=== PATIENT | female | born 1985 | race African-American/Black ===

== ENCOUNTER 2017-05-11 01:55 | Inpatient (IN) | payer BC ==
[~2017-05-11] VITALS: Ht 147.3 cm; Wt 101.3 kg
[2017-05-11] VITALS (8 sets, daily range): BP systolic 97–157; BP diastolic 67–98
[2017-05-11] MEDS ORDERED: PANTOPRAZOLE 40 MG 10ML VIAL IV STA (02:30)
[2017-05-11] MEDS ORDERED: PROMETHAZINE 12.5MG/ NACL 0.9% 12.5 MG/50 ML BAG IV ONE (02:30)
[2017-05-11] MEDS ORDERED: SODIUM CHLORIDE 0.9% 1000ML 1,000 ML IV STA (02:30)
[2017-05-11] MEDS ORDERED: MORPHINE SULFATE 2 MG/ML SYR IV STA ×2 (02:30→02:49)
[2017-05-11 02:38] LABS: BASOPHILS % 0.1 % (0.0-1.0); HEMOGLOBIN 14.2 g/dL (12.0-16.0); LYMPHOCYTES # (AUTO) 0.8 (1.0-3.2); LYMPHOCYTES % 5.5 % (18.0-39.1); MEAN CORPUSCULAR HEMOGLOBIN 27.5 pg (28-32); MEAN CORPUSCULAR HGB CONC 33.8 g/dL (31-35); MEAN CORPUSCULAR VOLUME 81.4 fL (81-99); MONOCYTES # (AUTO) 0.5 (0.2-0.8); MONOCYTES % 3.3 % (4.4-11.3); NEUTROPHILS # (AUTO) 13.7 (2.1-6.9); NEUTROPHILS % 90.8 % (38.7-80.0); PLATELET COUNT 252 x10e3/uL (140-360); RED BLOOD COUNT 5.16 x10e6/uL (3.6-5.1); RED CELL DISTRIBUTION WIDTH 14.1 % (11.7-14.4)
[2017-05-11 02:40] LABS: BILIRUBIN,URINE NEGATIVE (NEGATIVE); KETONES,URINE 2+ (NEGATIVE); LEUKOCYTE ESTERASE ,URINE TRACE (NEGATIVE); NITRITE,URINE NEGATIVE (NEGATIVE); URINE UROBILINOGEN 0.2 mg/dL (0.2 - 1)
[2017-05-11 02:43] LABS: CLARITY,URINE CLEAR (CLEAR); COLOR,URINE YELLOW (YELLOW); INR 1.1; PARTIAL THROMBOPLASTIN TIME 26.3 seconds (23.8-35.5); PROTEIN,URINE DIPSTICK 2+ (NEGATIVE); PROTHROMBIN TIME 13.4 seconds (11.9-14.5)
[2017-05-11 02:50] LABS: AMYLASE 85 U/L (25-125); CREATINE KINASE 126 IU/L (29-168); LIPASE 18 U/L (8-78)
[2017-05-11 02:54] LABS: ALANINE AMINOTRANSFERASE 17 IU/L (0-55); ALBUMIN 3.8 g/dL (3.5-5.0); ALBUMIN/GLOBULIN RATIO 0.9 (0.8-2.0); ALKALINE PHOSPHATASE 71 IU/L (40-150); ANION GAP 17.2 mmol/L (8-16); BACTERIA,URINE FEW /HPF; BLOOD UREA NITROGEN 7 mg/dL (7-26); BUN/CREATININE RATIO 9 (6-25); CALCIUM 9.5 mg/dL (8.4-10.2); CARBON DIOXIDE 21 mmol/L (22-29); CHLORIDE 105 mmol/L (98-107); CREATININE, SERUM 0.76 mg/dL (0.57-1.11); EPITHELIAL CELLS,URINE MANY /LPF; EST GLOMERULAR FILTRATION RATE > 60 ML/MIN (60-); GLUCOSE 143 mg/dL (74-118); MAGNESIUM 1.7 MG/DL (1.3-2.1); MUCUS,URINE MANY (RARE); POTASSIUM 3.2 mmol/L (3.5-5.1); SODIUM 140 mmol/L (136-145); WBC,URINE (MAN) 0-5 /HPF (0-5)
[2017-05-11 03:01] LABS: AMPHETAMINES SCREEN,URINE POSITIVE (NEGATIVE); BENZODIAZEPINES SCREEN,URINE NEGATIVE (NEGATIVE); PHENCYCLIDINE SCREEN,URINE NEGATIVE (NEGATIVE)
[2017-05-11] MEDS ORDERED: POTASSIUM CHLORIDE 20MEQ/15ML UDC PO STA (03:33)
[2017-05-11] MEDS ORDERED: KCL 20MEQ/.9 SOD CHL 1,000 ML IV ONE (03:45)
[2017-05-11] MEDS: PIPER-TAZ 3.375 GM 50 ML IV SCH ×4 (04:15→17:56)
[2017-05-11] MEDS ORDERED: MORPHINE SULFATE 2 MG/ML SYR IV PRN (04:15)
[2017-05-11] MEDS: METRONIDAZOLE 500MG/NS 100ML 100 ML IV SCH ×5 (04:52→23:42)
[2017-05-11] MEDS: ONDANSETRON HCL INJ 2 MG/ML VIAL IV PRN ×3 (06:25→15:39)
[2017-05-11] MEDS: PANTOPRAZOLE 40 MG 10ML VIAL IV SCH ×2 (09:00→16:55)
[2017-05-11] MEDS: SOD CHL 0.45%/POT CHL 20MEQ 1,000 ML IV SCH ×2 (09:45→17:45)
[2017-05-11] MEDS: HYDROMORPHONE 1MG/1ML INJ IV PRN ×3 (10:02→20:00)
[2017-05-11] MEDS ORDERED: PROMETHAZINE 25MG/ NS 50ML (IV) IV PRN (20:30)
[2017-05-12] VITALS (7 sets, daily range): BP systolic 100–143; BP diastolic 68–89
[2017-05-12] MEDS: PROMETHAZINE 25MG/ NS 50ML (IV) IV PRN ×3 (00:31→23:13)
[2017-05-12] MEDS: HYDROMORPHONE 1MG/1ML INJ IV PRN ×4 (00:31→23:13)
[2017-05-12] MEDS: PIPER-TAZ 3.375 GM 50 ML IV SCH ×5 (01:00→23:34)
[2017-05-12] MEDS: SOD CHL 0.45%/POT CHL 20MEQ 1,000 ML IV SCH ×3 (01:45→16:43)
[2017-05-12 06:09] LABS: BASOPHILS % 0.3 % (0.0-1.0); EOSINOPHILS % 0.2 % (0.0-6.0); HEMATOCRIT 37.2 % (34.2-44.1); HEMOGLOBIN 11.9 g/dL (12.0-16.0); LYMPHOCYTES # (AUTO) 1.6 (1.0-3.2); LYMPHOCYTES % 13.6 % (18.0-39.1); MEAN CORPUSCULAR HEMOGLOBIN 27.7 pg (28-32); MEAN CORPUSCULAR VOLUME 86.5 fL (81-99); MONOCYTES # (AUTO) 0.6 (0.2-0.8); MONOCYTES % 5.2 % (4.4-11.3); NEUTROPHILS # (AUTO) 9.6 (2.1-6.9); NEUTROPHILS % 80.4 % (38.7-80.0); PLATELET COUNT 142 x10e3/uL (140-360); RED CELL DISTRIBUTION WIDTH 14.6 % (11.7-14.4)
[2017-05-12] MEDS: METRONIDAZOLE 500MG/NS 100ML 100 ML IV SCH ×3 (06:34→17:54)
[2017-05-12 06:57] LABS: ALANINE AMINOTRANSFERASE 17 IU/L (0-55); ALBUMIN 3.2 g/dL (3.5-5.0); ALKALINE PHOSPHATASE 56 IU/L (40-150); ANION GAP 11.3 mmol/L (8-16); BLOOD UREA NITROGEN 9 mg/dL (7-26); BUN/CREATININE RATIO 12 (6-25); CALCIUM 7.9 mg/dL (8.4-10.2); CARBON DIOXIDE 24 mmol/L (22-29); CHLORIDE 107 mmol/L (98-107); CREATININE, SERUM 0.74 mg/dL (0.57-1.11); EST GLOMERULAR FILTRATION RATE > 60 ML/MIN (60-); GLUCOSE 97 mg/dL (74-118); POTASSIUM 3.3 mmol/L (3.5-5.1); SODIUM 139 mmol/L (136-145)
[2017-05-12 07:12] LABS: PLATELET ESTIMATE ADEQUATE; PLATELET MORPHOLOGY COMMENT FEW EDTA CLUMPING
[2017-05-12] MEDS ORDERED: DIATRIZOATE MEGL/DIATRIZOA SOD 30 ML BTL PO ONE (08:11)
[2017-05-12] MEDS: PANTOPRAZOLE 40 MG 10ML VIAL IV SCH ×2 (09:00→16:43)
[2017-05-12] MEDS ORDERED: POTASSIUM CHLORIDE 20MEQ/100ML 100 ML IV ONE (09:45)
--- NOTE | 2017-05-12 10:59 | Diagnostic Imaging Report ---
PROCEDURE:CT ABDOMEN AND PELVIS WITH CONTRAST COMPARISON:None. INDICATIONS:Diverticulitis TECHNIQUE: Routine protocol Volumetric CT abdomen and pelvis after administration of 100 mL Isovue-370 intravenous contrast and 900 mL positive enteric contrast. Multiplanar reformatted images. DLP: 743.65 FINDINGS: Clear lung bases. No pleural effusions. Normal heart size. Liver: Normal Gallbladder: Cholecystectomy. Mild intrahepatic bile duct dilation consistent with reservoir effect. Common bile duct diameter 8mm. Pancreas: Normal Spleen: Normal Adrenal glands: Normal Kidneys and ureters: Normal Urinary bladder: Normal Uterus and adnexa: Normal Bowel: Normal caliber. Circumferential thickening of the proximal to mid sigmoid (images 61-66, series 2). Regional diverticulosis. Sigmoid mesocolon fat stranding along the region of thickening. Peritoneum: Normal. Vasculature: Normal caliber. Lymph nodes: 8mm short axis mesocolon lymph node along the sigmoid and IMV. Skeleton: Intact. Soft tissues: Normal CONCLUSION: 1. Circumferential thickening of the proximal to mid sigmoid colon suggestive of colitis. Long segment uncomplicated diverticulitis is possible, but considered less likely given the length of the affected segment. 2. Reactive lymphadenopathy. Dictated by: José Miguel Cordon M.D. on 05/12/2017 at 10:58 Electronically approved by: José Miguel Cordon M.D. on 05/12/2017 at 10:58
[2017-05-12] MEDS ORDERED: IOPAMIDOL 370 MG/ML 200 ML INFUS..BTL INJ ONE (13:51)
[2017-05-12] MEDS ORDERED: SODIUM CHLORIDE 0.9% 50ML 50 ML ONE (13:51)
[2017-05-12] MEDS ORDERED: SODIUM CHLORIDE 0.9% 500ML 500 ML ONE (17:08)
[2017-05-13] MEDS: METRONIDAZOLE 500MG/NS 100ML 100 ML IV SCH ×4 (00:03→17:06)
[2017-05-13] MEDS: SOD CHL 0.45%/POT CHL 20MEQ 1,000 ML IV SCH ×3 (00:03→16:07)
[2017-05-13 00:17] VITALS: BP 128/62
[2017-05-13 04:36] VITALS: BP 133/70
[2017-05-13] MEDS: PIPER-TAZ 3.375 GM 50 ML IV SCH ×4 (05:18→23:42)
[2017-05-13 06:08] LABS: BASOPHILS % 0.2 % (0.0-1.0); EOSINOPHILS # (AUTO) 0.1 (0.0-0.4); EOSINOPHILS % 0.5 % (0.0-6.0); HEMATOCRIT 36.3 % (34.2-44.1); HEMOGLOBIN 12.2 g/dL (12.0-16.0); LYMPHOCYTES # (AUTO) 1.4 (1.0-3.2); LYMPHOCYTES % 12.8 % (18.0-39.1); MEAN CORPUSCULAR HEMOGLOBIN 27.7 pg (28-32); MEAN CORPUSCULAR HGB CONC 33.6 g/dL (31-35); MEAN CORPUSCULAR VOLUME 82.5 fL (81-99); MONOCYTES # (AUTO) 0.5 (0.2-0.8); MONOCYTES % 4.5 % (4.4-11.3); NEUTROPHILS # (AUTO) 8.7 (2.1-6.9); NEUTROPHILS % 81.7 % (38.7-80.0); PLATELET COUNT 215 x10e3/uL (140-360); RED CELL DISTRIBUTION WIDTH 13.8 % (11.7-14.4)
[2017-05-13 06:32] LABS: ALANINE AMINOTRANSFERASE 18 IU/L (0-55); ALBUMIN 3.1 g/dL (3.5-5.0); ALBUMIN/GLOBULIN RATIO 0.9 (0.8-2.0); ALKALINE PHOSPHATASE 61 IU/L (40-150); ANION GAP 12.4 mmol/L (8-16); BLOOD UREA NITROGEN 7 mg/dL (7-26); BUN/CREATININE RATIO 10 (6-25); CALCIUM 8.2 mg/dL (8.4-10.2); CARBON DIOXIDE 23 mmol/L (22-29); CHLORIDE 102 mmol/L (98-107); CREATININE, SERUM 0.72 mg/dL (0.57-1.11); EST GLOMERULAR FILTRATION RATE > 60 ML/MIN (60-); GLUCOSE 89 mg/dL (74-118); POTASSIUM 3.4 mmol/L (3.5-5.1); SODIUM 134 mmol/L (136-145)
[2017-05-13 07:47] VITALS: BP 127/75
[2017-05-13] MEDS: PANTOPRAZOLE 40 MG 10ML VIAL IV SCH ×2 (09:09→16:07)
[2017-05-13 09:14] VITALS: BP 127/75
[2017-05-13 16:00] VITALS: BP 121/56
[2017-05-13] MEDS: ACETAMINOPHEN 325 MG TAB PO PRN (16:07)
[2017-05-13 20:00] VITALS: BP 154/72
[2017-05-13] MEDS: PROMETHAZINE 25MG/ NS 50ML (IV) IV PRN (22:10)
[2017-05-13] MEDS: HYDROMORPHONE 1MG/1ML INJ IV PRN (22:10)
[2017-05-14] VITALS: BP 129/77
[2017-05-14] MEDS: METRONIDAZOLE 500MG/NS 100ML 100 ML IV SCH ×4 (00:45→17:25)
[2017-05-14] MEDS: SOD CHL 0.45%/POT CHL 20MEQ 1,000 ML IV SCH ×3 (03:38→17:25)
[2017-05-14 04:00] VITALS: BP 143/69
[2017-05-14] MEDS: PIPER-TAZ 3.375 GM 50 ML IV SCH ×3 (05:22→17:37)
[2017-05-14 08:00] VITALS: BP 123/70
[2017-05-14] MEDS: PANTOPRAZOLE 40 MG 10ML VIAL IV SCH ×2 (08:42→17:11)
[2017-05-14 12:00] VITALS: BP 108/62
[2017-05-14] MEDS: ACETAMINOPHEN 325 MG TAB PO PRN (13:57)
[2017-05-14 16:00] VITALS: BP 124/80
[2017-05-14 20:00] VITALS: BP 132/66
[2017-05-14] MEDS: PROMETHAZINE 25MG/ NS 50ML (IV) IV PRN (21:51)
[2017-05-15] VITALS: BP 116/62
[2017-05-15] MEDS: PIPER-TAZ 3.375 GM 50 ML IV SCH ×4 (00:10→18:15)
[2017-05-15] MEDS: METRONIDAZOLE 500MG/NS 100ML 100 ML IV SCH ×4 (01:00→17:08)
[2017-05-15] MEDS ORDERED: POTASSIUM CHLORIDE 20 MEQ TAB CR PO STA (01:06)
[2017-05-15] MEDS: SOD CHL 0.45%/POT CHL 20MEQ 1,000 ML IV SCH ×4 (01:45→21:53)
[2017-05-15 04:00] VITALS: BP 135/82
[2017-05-15] MEDS: PANTOPRAZOLE 40 MG 10ML VIAL IV SCH ×2 (07:56→17:08)
[2017-05-15 07:59] VITALS: BP 135/82
[2017-05-15 09:56] LABS: ALANINE AMINOTRANSFERASE 15 IU/L (0-55); ALBUMIN 3.3 g/dL (3.5-5.0); ALBUMIN/GLOBULIN RATIO 0.8 (0.8-2.0); ALKALINE PHOSPHATASE 68 IU/L (40-150); ANION GAP 14.4 mmol/L (8-16); BLOOD UREA NITROGEN < 5 mg/dL (7-26); CALCIUM 9.4 mg/dL (8.4-10.2); CARBON DIOXIDE 20 mmol/L (22-29); CHLORIDE 107 mmol/L (98-107); CREATININE, SERUM 0.86 mg/dL (0.57-1.11); EST GLOMERULAR FILTRATION RATE > 60 ML/MIN (60-); GLUCOSE 128 mg/dL (74-118); POTASSIUM 3.4 mmol/L (3.5-5.1); SODIUM 138 mmol/L (136-145)
[2017-05-15 10:07] LABS: BUN/CREATININE RATIO 6 (6-25)
[2017-05-15 10:27] LABS: BASOPHILS % 0.4 % (0.0-1.0); EOSINOPHILS # (AUTO) 0.1 (0.0-0.4); EOSINOPHILS % 1.5 % (0.0-6.0); HEMATOCRIT 40.9 % (34.2-44.1); HEMOGLOBIN 13.5 g/dL (12.0-16.0); LYMPHOCYTES # (AUTO) 1.7 (1.0-3.2); LYMPHOCYTES % 21.4 % (18.0-39.1); MEAN CORPUSCULAR HEMOGLOBIN 27.9 pg (28-32); MEAN CORPUSCULAR VOLUME 84.5 fL (81-99); MONOCYTES # (AUTO) 0.5 (0.2-0.8); MONOCYTES % 5.6 % (4.4-11.3); NEUTROPHILS # (AUTO) 5.7 (2.1-6.9); PLATELET COUNT 257 x10e3/uL (140-360); RED BLOOD COUNT 4.84 x10e6/uL (3.6-5.1); RED CELL DISTRIBUTION WIDTH 13.5 % (11.7-14.4)
[2017-05-15 10:42] VITALS: BP 146/86
[2017-05-15 16:00] VITALS: BP 131/62
[2017-05-15 20:00] VITALS: BP 137/86
[2017-05-15] MEDS: PROMETHAZINE 25MG/ NS 50ML (IV) IV PRN (21:55)
[2017-05-16] VITALS: BP 132/73
[2017-05-16] MEDS: METRONIDAZOLE 500MG/NS 100ML 100 ML IV SCH ×3 (01:07→12:00)
[2017-05-16] MEDS: PIPER-TAZ 3.375 GM 50 ML IV SCH ×3 (02:00→12:00)
[2017-05-16 04:00] VITALS: BP 126/76
[2017-05-16 06:59] LABS: ANION GAP 13.4 mmol/L (8-16); BLOOD UREA NITROGEN < 5 mg/dL (7-26); CALCIUM 9.2 mg/dL (8.4-10.2); CARBON DIOXIDE 21 mmol/L (22-29); CHLORIDE 104 mmol/L (98-107); CREATININE, SERUM 0.77 mg/dL (0.57-1.11); EST GLOMERULAR FILTRATION RATE > 60 ML/MIN (60-); GLUCOSE 133 mg/dL (74-118); POTASSIUM 3.4 mmol/L (3.5-5.1); SODIUM 135 mmol/L (136-145)
[2017-05-16 07:05] LABS: BUN/CREATININE RATIO 6 (6-25)
[2017-05-16 08:00] VITALS: BP 126/76
[2017-05-16] MEDS: PANTOPRAZOLE 40 MG 10ML VIAL IV SCH (09:00)
[2017-05-16] MEDS ORDERED: POTASSIUM CHLORIDE 10 MEQ TABCR PO ONE (09:15)
[2017-05-16] MEDS: SOD CHL 0.45%/POT CHL 20MEQ 1,000 ML IV SCH (09:45)
[2017-05-16] MEDS ORDERED: LEVAQUIN500 MG PO (10:40)
[2017-05-16] MEDS ORDERED: FLAGYL250 MG PO (10:41)
--- NOTE | 2017-05-16 11:07 | Discharge Summary ---
Ms. Aleman is a 31-year-old black female with not very clear past medical history. Came to the emergency room with left lower quadrant pain, constipation and vomiting. Apparently, this is the 3rd episode in less than a year. She was already admitted previously with diverticulitis. She has been on IV antibiotics. Followed by GI and surgeon. She is doing better. She is tolerating the diet. She is afebrile. White count is normal. No pain. The plan is to discharge her home if it is okay with the consultants. PHYSICAL EXAMINATION GENERAL: She is awake and alert. She wants to go home. VITALS: Temperature is 98.4, blood pressure 126/76. HEART: Regular rate. LUNGS: Clear to auscultation. ABDOMEN: Soft. BLOOD WORK: Potassium 3.4, creatinine 0.77, glucose 133. White count is 7.99, hemoglobin 13.5, hematocrit 40.9. DISCHARGE DIAGNOSES 1. Sigmoid diverticulitis with this being a recurrent episode. 2. Leukocytosis. 3. Constipation. 4. Vomiting. 5. Elevated blood sugar. 6. Hypokalemia. PLAN: At the present time, is to replace her potassium. We are going to put her on Levaquin and Flagyl for 7 more days. She needs followup with the surgeon as directed by him. Follow up with GI in 4-6 weeks for a colonoscopy. Follow ADA diet, 1800 calorie. Follow up with me for diabetes workup. She is to call me or come back to the emergency room if any recurrent problems. All of this was discussed with the patient. All questions were answered to satisfaction. GRIFFIN SILVERMAN MD Job#: [id number] NM
[2017-05-16 12:00] VITALS: BP 143/98
== END 2017-05-16 13:00 | disposition home or self-care (01) | DRG 392 ==
LOC: ER 01:55 → ERHOLD 04:23 → MED/SURG2 04:52
PROVIDERS: ADMIT Internal Medicine; ATTEND Internal Medicine
DX: K57.32 Diverticulitis of large intestine without perforation or abscess without bleeding (principal); Z68.42 Body mass index [BMI] 45.0-49.9, adult; K50.10 Crohn's disease of large intestine without complications; F17.210 Nicotine dependence, cigarettes, uncomplicated; E86.0 Dehydration; F12.10 Cannabis abuse, uncomplicated; F15.10 Other stimulant abuse, uncomplicated; K59.00 Constipation, unspecified; E66.9 Obesity, unspecified; Z90.49 Acquired absence of other specified parts of digestive tract; D72.829 Elevated white blood cell count, unspecified; E87.6 Hypokalemia; R73.9 Hyperglycemia, unspecified
CPT/HCPCS: 36415; 74177; 80048; 80053; 80307; 81001; 82150; 82550; 82553; 83605; 83690; 83735; 84484; 84702; 85025; 85610; 85730; 87040; 87071; 87086; 87205; 99284; J1170; J2270; J2405; J2543; J2550; J3480; J7030; J7040; Q9967

== ENCOUNTER → 2017-06-17 | Day surgery (SDC) | payer BC ==
[~2017-06-17] MED LIST: FENTANYL CITRATE/PF 100MCG/2 ML INJ ONE; FLAGYL250 MG PO; LEVAQUIN500 MG PO; LIDOCAINE HCL 2% LOCAL INJ 5 ML SDV VIAL INJ ONE; MIDAZOLAM HCL 2 MG/2 ML VIAL ONE; PANTOPRAZOLE SO40 MG PO; PROPOFOL IV EMULSION 10 MG/ML 50 ML VIAL ONE
--- OUTSIDE RECORDS SUMMARY | 2017-06-17 09:07 | XMS REPORT ---
Author [facility] Address Unknown Phone Unavailable Care Team Providers Care Rework Operator Name Role Phone GRIFFIN SILVERMAN Unavailable Unavailable Problems This patient has no known problems. Allergies, Adverse Reactions, Alerts This patient has no known allergies or adverse reactions. Medications This patient has no known medications. Results Test Description Test Time Test Comments Text Results Atomic Results Result Comments CT ABDOMEN/PELVIS W [facility] [address] [address] Patient Name: BHARGAVI LUNA MR #: [id number] : 1985 Age/Sex: 31/F Req #: [id number] Adm Physician: GRIFFIN SILVERMAN MD Ordered by : SHELTON SHEPPARD MD Report #: [id number] Location: MED/SURG Room/Bed: [facility] Procedure: [id number] CT/CT ABDOMEN/PELVIS W Exam Date: 05/12/17 Exam Time: 1030 REPORT STATUS: Signed PROCEDURE: CT ABDOMEN AND PELVIS WITH CONTRAST COMPARISON : None. INDICATIONS: Diverticulitis TECHNIQUE: Routine protocol Volumetric CT abdomen and pelvis after administration of 100 mL Isovue-370 intravenous contrast and 900 mL positive enteric contrast. Multiplanar reformatted images. DLP: 743.65 FINDINGS: Clear lung bases. No pleural effusions. Normal heart size. Liver: Normal Gallbladder: Cholecystectomy. Mild intrahepatic bile duct dilation consistent with reservoir effect. Common bile duct diameter 8mm. Pancreas: Normal Spleen: Normal Adrenal glands: Normal Kidneys and ureters: Normal Urinary bladder: Normal Uterus and adnexa: Normal Bowel: Normal caliber. Circumferential thickening of the proximal to mid sigmoid (images 61-66, series 2). Regional diverticulosis. Sigmoid mesocolon fat stranding along the region of thickening. Peritoneum: Normal. Vasculature: Normal caliber. Lymph nodes: 8mm short axis mesocolon lymph node along the sigmoid and IMV. Skeleton: Intact. Soft tissues: Normal CONCLUSION: 1. Circumferential thickening of the proximal to mid sigmoid colon suggestive of colitis. Long segment uncomplicated diverticulitis is possible , but considered less likely given the length of the affected segment. 2. Reactive lymphadenopathy. Dictated by: Lovely Cota M.D. on 2017 at 10:58 Electronically approved by: Lovely Cota M.D. on at 10:58 Dictated By: LOVELY COTA MD [id number] Transcribed By: ANTONY on 05/12/17 1058 COPY TO: SHELTON SHEPPARD MD
--- OUTSIDE RECORDS SUMMARY | 2017-06-17 09:07 | XMS REPORT | Continuity of Care Document ---
Author Author [facility] Organization [facility] Address [address] [place] [address] Phone Unavailable Care Team Providers Care Agricultural Crop Farm Manager Name Role Phone NO, PCP PCP Unavailable Insurance Providers Guarantor Ariana Aleman Address [address] [place] [address] Email [email or web address] Payer [facility] Ppo Policy Number [id number] Subscriber's Name Chetan Ambrosio Relationship 01 Group Number [id number] Group Name [employer] Effective Date 17 Advance Directives Directive Response Recorded Date/Time Does the patient have an advance directive? No 05/11/17 5:30am If yes, is advance directive on file with [facility]? No 05/11/17 5:30am If not on file with [facility] will patient provide a copy? No 05/11/17 5:30am Do you have a Directive to Physician? No 05/11/17 2:46am Do you have a Medical Power of Music Store Manager? No 05/11/17 2:46am Do you have an out of hospital Do Not Resuscitate Order? No 05/11/17 2:46am Do you have any special needs we should be aware of? No 05/11/17 2:46am Do you have a support person here with you today? Yes 05/11/17 2:46am Did patient receive Notice of Privacy Practices? Yes 05/11/17 2:46am Did patient receive patient rights and responsibilities? Yes 05/11/17 2:46am Problems Medical Problem Onset Date Status Dehydration Unknown Diverticulitis of sigmoid colon Unknown Hypokalemia Unknown Vomiting Unknown Medications Current Home Medications Medication Dose Units Route Directions Days Qty Instructions Start Date Levofloxacin (Levaquin) 500 Mg Tablet 500 Mg Oral Daily 7 Tab Metronidazole (Flagyl) 250 Mg Tablet 500 Mg Oral Three Times A Day 7 Days 21 Social History Social History Problem Response Recorded Date/Time Onset Date Status Hx Psychiatric Problems No 05/11/2017 5:30am Not Applicable Not Applicable Smoking Status Start Date Stop Date Never Smoker Hospital Discharge Instructions No hospital discharge instruction information available. Plan of Care Discharge Date 05/16/17 1:00pm Disposition HOME, SELF-CARE Instructions/Education Provided Diverticulitis Prescriptions See Medication Section Referrals GRIFFIN SILVERMAN MD (Internal Medicine) Order Date: 7-10 Days Entered Date: 05/16/2017 10:43am Address: [address] [place] [address] [address] [place] [address] NAVNEET SANCHEZ MD (Gastroenterology) Order Date: 7-10 Days Entered Date: 05/16/2017 10:43am Address: [address] [place] [address] [address] [place] [address] Additional Instructions/Education GI SOFT DIET ACTIVITY TOLERATED Functional Status Query Response Date Recorded Assistive Devices None May 11, 2017 5:30am Ambulation Ability Independent May 11, 2017 5:30am Toileting Ability Independent May 14, 2017 5:36pm Allergies, Adverse Reactions, Alerts No known allergies. Immunizations No immunization information available. Vital Signs Acute Vital Signs Vital Response Date/Time Temperature (Fahrenheit) 98.6 degrees F (97.6 - 99.5) 05/16/2017 12:00pm Pulse Pulse Rate (adult) 92 bpm (60 - 90) 05/16/2017 12:00pm Respiratory Rate 20 bpm (12 - 24) 05/16/2017 12:00pm Blood Pressure 143/98 mm Hg 05/16/2017 12:00pm Height 4 ft 10 in 05/11/2017 2:11am Weight 223.25 lb 05/16/2017 12:42am Body Mass Index 46.7 kg/m^2 05/16/2017 12:42am Results Laboratory Results Test Name Result Units Flags Reference Collection Date/Time Result Date/ Time Comments White Blood Count 7.99 x10e3/uL 4.8-10.8 05/15/2017 8:40am 05/15/2017 10:36am Red Blood Count 4.84 x10e6/uL 3.6-5.1 05/15/2017 8:40am 05/15/2017 10: 36am Hemoglobin 13.5 g/dL 12.0-16.0 05/15/2017 8:40am 05/15/2017 10:36am Hematocrit 40.9 % 34.2-44.1 05/15/2017 8:40am 05/15/2017 10:36am Mean Corpuscular Volume 84.5 fL 81-99 05/15/2017 8:40am 05/15/2017 10: 36am Mean Corpuscular Hemoglobin 27.9 pg L 28-32 05/15/2017 8:40am 2017 10:36am Mean Corpuscular Hemoglobin Concent 33.0 g/dL 31-35 05/15/2017 8:40am 05/15/2017 10:36am Red Cell Distribution Width 13.5 % 11.7-14.4 05/15/2017 8:40am 2017 10:36am Platelet Count 257 x10e3/uL 140-360 05/15/2017 8:40am 05/15/2017 10: 36am Neutrophils (%) (Auto) 71.0 % 38.7-80.0 05/15/2017 8:40am 05/15/2017 10 :36am Lymphocytes (%) (Auto) 21.4 % 18.0-39.1 05/15/2017 8:40am 05/15/2017 10 :36am Monocytes (%) (Auto) 5.6 % 4.4-11.3 05/15/2017 8:40am 05/15/2017 10: 36am Eosinophils (%) (Auto) 1.5 % 0.0-6.0 05/15/2017 8:40am 05/15/2017 10: 36am Basophils (%) (Auto) 0.4 % 0.0-1.0 05/15/2017 8:40am 05/15/2017 10: 36am IM GRANULOCYTES % 0.1 % 0.0-1.0 05/15/2017 8:40am 05/15/2017 10:36am Neutrophils # (Auto) 5.7 2.1-6.9 05/15/2017 8:40am 05/15/2017 10: 36am Lymphocytes # (Auto) 1.7 1.0-3.2 05/15/2017 8:40am 05/15/2017 10: 36am Monocytes # (Auto) 0.5 0.2-0.8 05/15/2017 8:40am 05/15/2017 10:36am Eosinophils # (Auto) 0.1 0.0-0.4 05/15/2017 8:40am 05/15/2017 10: 36am Basophils # (Auto) 0.0 0.0-0.1 05/15/2017 8:40am 05/15/2017 10:36am Absolute Immature Granulocyte (auto 0.01 x10e3/uL 0-0.1 05/15/2017 8: 40am 05/15/2017 10:36am Platelet Estimate ADEQUATE 05/12/2017 5:48am 05/12/2017 7:12am Platelet Morphology Comment FEW EDTA CLUMPING 05/12/2017 5:48am 7:12am Prothrombin Time 13.4 seconds 11.9-14.5 05/11/2017 2:30am 05/11/2017 2: 45am Prothromb Time International Ratio 1.10 05/11/2017 2:30am 2017 2:45am Oral Anticoagulant Therapy INR Values: 1. Low Intensity Therapy 1.5 - 2.0 2. Moderate Intensity Therapy 2.0 - 3.0 3. High Intensity Therapy(1) 2.5 - 3.5 4. High Intensity Therapy(2) 3.0 - 4.0 5. Panic Value INR > 5.0 Activated Partial Thromboplast Time 26.3 seconds 23.8-35.5 05/11/2017 2: 30am 05/11/2017 2:45am Urine Color YELLOW YELLOW 05/11/2017 2:30am 05/11/2017 2:43am Urine Clarity CLEAR CLEAR 05/11/2017 2:30am 05/11/2017 2:43am Urine Specific Odell 1.030 H 1.010-1.025 05/11/2017 2:30am 2017 2:43am Urine pH 5 5 - 7 05/11/2017 2:30am 05/11/2017 2:43am Urine Leukocyte Esterase TRACE H NEGATIVE 05/11/2017 2:30am 2017 2:43am Urine Nitrite NEGATIVE NEGATIVE 05/11/2017 2:30am 05/11/2017 2:43am Urine Protein 2+ H NEGATIVE 05/11/2017 2:30am 05/11/2017 2:43am Urine Glucose (UA) NEGATIVE NEGATIVE 05/11/2017 2:30am 05/11/2017 2: 43am Urine Ketones 2+ H NEGATIVE 05/11/2017 2:30am 05/11/2017 2:43am Urine Opiates Screen POSITIVE H NEGATIVE 05/11/2017 2:30am 05/11/2017 3:03am This test provides only a screen. Positive results should be repeated by a confirmatory test. Urine Barbiturates Screen NEGATIVE NEGATIVE 05/11/2017 2:30am 2017 3:03am Urine Phencyclidine Screen NEGATIVE NEGATIVE 05/11/2017 2:30am 2017 3:03am Urine Amphetamines Screen POSITIVE H NEGATIVE 05/11/2017 2:30am 2017 3:03am This test provides only a screen. Positive results should be repeated by a confirmatory test. Urine Methamphetamines Screen POSITIVE H NEGATIVE 05/11/2017 2:30am 3:03am This test provides only a screen. Positive results should be repeated by a confirmatory test. Urine Benzodiazepines Screen NEGATIVE NEGATIVE 05/11/2017 2:30am 3:03am Urine Cocaine Screen NEGATIVE NEGATIVE 05/11/2017 2:30am 05/11/2017 3 :03am Urine Cannabinoids Screen NEGATIVE NEGATIVE 05/11/2017 2:30am 2017 3:03am THESE RESULTS ARE FOR MEDICAL TREATMENT ONLY *THIS REPORT CONTAINS UNCONFIRMED SCREENING RESULTS* POSITIVE RESULTS WILL BE CONFIRMED BY REFERENCE LAB UPON REQUEST CUT-OFF DRUG CLASS CONCENTRATION ng/mL Amphetamines 1000 Methamphetamines 1000 Cocaine 300 Opiate 300 Phencyclidine 25 Cannabinoid 50 Barbiturates 300 Benzodiazepine 300 Methadone 300 Urine Methadone Screen NEGATIVE NEGATIVE 05/11/2017 2:30am 2017 3:03am THESE RESULTS ARE FOR MEDICAL TREATMENT ONLY *THIS REPORT CONTAINS UNCONFIRMED SCREENING RESULTS* POSITIVE RESULTS WILL BE CONFIRMED BY REFERENCE LAB UPON REQUEST CUT-OFF DRUG CLASS CONCENTRATION ng/mL Amphetamines 1000 Methamphetamines 1000 Cocaine Metabolite 300 Opiate 300 Phencyclidine 25 Cannabinoid 50 Barbiturates 300 Benzodiazepine 300 Methadone 300 Urine Urobilinogen 0.2 mg/dL 0.2 - 1 05/11/2017 2:30am 05/11/2017 2: 43am Urine Bilirubin NEGATIVE NEGATIVE 05/11/2017 2:30am 05/11/2017 2: 43am Urine Blood 2+ H NEGATIVE 05/11/2017 2:30am 05/11/2017 2:43am Urine WBC 0-5 /HPF 0-5 05/11/2017 2:30am 05/11/2017 2:54am Urine RBC 6-10 /HPF H 0-5 05/11/2017 2:30am 05/11/2017 2:54am Urine Bacteria FEW /HPF NONE 05/11/2017 2:30am 05/11/2017 2:54am Urine Epithelial Cells MANY /LPF NONE 05/11/2017 2:30am 05/11/2017 2: 54am Urine Mucus MANY H RARE 05/11/2017 2:30am 05/11/2017 2:54am Sodium Level 135 mmol/L L 136-145 05/16/2017 6:02am 05/16/2017 7:05am Potassium Level 3.4 mmol/L L 3.5-5.1 05/16/2017 6:02am 05/16/2017 7: 05am Chloride Level 104 mmol/L 98-107 05/16/2017 6:02am 05/16/2017 7:05am Carbon Dioxide Level 21 mmol/L L 22-05/16/2017 6:02am 05/16/2017 7: 05am Anion Gap 13.4 mmol/L 8-16 05/16/2017 6:02am 05/16/2017 7:05am Blood Urea Nitrogen < 5 mg/dL L 7-05/16/2017 6:02am 05/16/2017 7: 05am Creatinine 0.77 mg/dL 0.57-1.11 05/16/2017 6:02am 05/16/2017 7:05am BUN/Creatinine Ratio 6 6-25 05/16/2017 6:02am 05/16/2017 7:05am Estimat Glomerular Filtration Rate > 60 ML/MIN 60- 05/16/2017 6:02am 7:05am Ranges were taken from the National Kidney Disease Education Program and the National Kid[employer] Foundation literature. Reference ranges: 60 or greater: Normal 16-59 (for 3 consecutive months): Chronic kidney disease 15 or less: Kidney failure Glucose Level 133 mg/dL H 74-118 05/16/2017 6:02am 05/16/2017 7:05am Calcium Level 9.2 mg/dL 8.4-10.2 05/16/2017 6:02am 05/16/2017 7:05am Lactic Acid Level 18.2 MG/DL 4.5-19.8 05/11/2017 2:50am 05/11/2017 3: 15am Magnesium Level 1.7 MG/DL 1.3-2.1 05/11/2017 2:30am 05/11/2017 2:56am Total Bilirubin 0.4 mg/dL 0.2-1.2 05/15/2017 8:40am 05/15/2017 10:08am Aspartate Amino Transf (AST/SGOT) 17 IU/L 5-34 05/15/2017 8:40am 2017 10:08am Alanine Aminotransferase (ALT/SGPT) 15 IU/L 0-55 05/15/2017 8:40am 10:08am Total Protein 7.4 g/dL 6.5-8.1 05/15/2017 8:40am 05/15/2017 10:08am Albumin 3.3 g/dL L 3.5-5.0 05/15/2017 8:40am 05/15/2017 10:08am Globulin 4.1 g/dL H 2.3-3.5 05/15/2017 8:40am 05/15/2017 10:08am Albumin/Globulin Ratio 0.8 0.8-2.0 05/15/2017 8:40am 05/15/2017 10: 08am Alkaline Phosphatase 68 IU/L 40-150 05/15/2017 8:40am 05/15/2017 10: 08am Creatine Kinase 126 IU/L 29-168 05/11/2017 2:30am 05/11/2017 2:51am Creatine Kinase MB 1.20 ng/mL 0-5.0 05/11/2017 2:30am 05/11/2017 2: 59am Troponin I < 0.001 ng/mL 0-0.300 05/11/2017 2:30am 05/11/2017 2:59am Amylase Level 85 U/L 25-125 05/11/2017 2:30am 05/11/2017 2:51am Lipase 18 U/L 8-78 05/11/2017 2:30am 05/11/2017 2:51am Human Chorionic Gonadotropin, Qual NEGATIVE NEGATIVE 05/11/2017 2: 30am 05/11/2017 2:55am Microbiology Results Procedure Source Organism/Result Collection Date/Time Result Date/Time Result Status Blood Culture Blood NO GROWTH AFTER 5 DAYS, FINAL REPORT 05/11/2017 4:00am 05/16/2017 4:19am Final Blood Culture Blood STAPHYLOCOCCUS SP COAG NEG 05/11/2017 4:00am 2017 9:45am Final Procedures Procedure Status Date Provider(s) Computed tomography of abdomen and pelvis with contrast Active 05/12/17 SHELTON SHEPPARD MD Encounters Encounter Location Arrival/Admit Date Discharge/Depart Date Attending Provider Discharged Inpatient [facility] 05/11/17 4:23am 05/16/17 1:00pm GRIFFIN SILVERMAN MD
--- NOTE | 2017-06-17 14:18 | Operative Report ---
DATE OF PROCEDURE: June 17, 2017 REFERRING PHYSICIAN: PROCEDURE PERFORMED 1. EGD with biopsies. 2. Colonoscopy with polypectomy. INDICATIONS FOR EGD: Nausea, bloating, history of dark stools. INDICATIONS FOR COLONOSCOPY: Lower abdominal pain, history of recurrent diverticulitis. MEDICATION: Patient was done under MAC. Please see anesthesiologist's note. PROCEDURE: With patient in left lateral decubitus position, flexible fiberoptic Olympus gastroscope was introduced into the esophagus under direct visualization without any difficulty. There was some patchy erythema noted in distal esophagus. The scope was then advanced with ease into the stomach traversing a small sliding hiatal hernia. Mucosa overlying the antrum and the body revealed some patchy erythema and mild to moderate edema and biopsies were obtained and sent to stain for H. pylori. Pylorus appeared to be of normal contour and shape. Was intubated with ease and the scope was advanced all the way to the 2nd portion of the duodenum. The scope was then withdrawn slowly and a minute nodule was noted proximal to the ampulla that was biopsied. The mucosa overlying the duodenal bulb appeared to be within normal limits. The scope was then withdrawn back into the stomach and retroflexed and mucosa overlying the fundus and the cardia appeared to be within normal limits. The scope was then straightened out. The stomach was decompressed. The scope was subsequently withdrawn. Patient tolerated the procedure well. IMPRESSION 1. Mild distal esophagitis. 2. Small sliding hiatal hernia. 3. Gastritis biopsied. Biopsies sent to stain for H. pylori. 4. Minute nodule proximal 2nd portion proximal to ampulla biopsied. PLAN: Follow up histology. Initiate Protonix 40 mg 1 p.o. q. a.m. a.c. Patient was then turned around. After adequate lubrication of the anal canal, the flexible fiberoptic Olympus colonoscope was inserted into the rectum with ease and advanced all the way to the cecum. It was then withdrawn slowly. Mucosa overlying the cecum, ascending colon, transverse colon, and descending colon appeared to be within normal limits. Diverticular disease was noted in the sigmoid colon. There was a minute polyp noted in the distal sigmoid that was hot biopsied and additional polyp was also noted in the rectum that was hot biopsied. The scope was then retroflexed into the distal rectum and small internal hemorrhoids were noted, none of which was actively bleeding. The scope was then straightened out. The rectosigmoid area as well as the distal rectal area were decompressed. The scope was subsequently withdrawn. Patient tolerated the procedure well. IMPRESSION 1. Diverticulosis. 2. Sigmoid colon polyp hot biopsied. 3. Rectal polyp hot biopsied. 4. Internal hemorrhoids none actively bleeding. PLAN: Follow up histology. Initiate high-fiber low-fat diet. Initiate high-fiber supplement. Start VSL #3 DS one p.o. b.i.d.. Patient might benefit from a followup colonoscopy in 3 to 5 years. NAVNEET SANCHEZ MD Job#: [id number] DG
== END | disposition home or self-care (01) ==
LOC: OR 09:05
PROVIDERS: ATTEND Internal Medicine Gastroenterology
DX: K29.70 Gastritis, unspecified, without bleeding (principal); K63.5 Polyp of colon; K62.1 Rectal polyp; K57.32 Diverticulitis of large intestine without perforation or abscess without bleeding; K20.9 Esophagitis, unspecified; K59.00 Constipation, unspecified; K44.9 Diaphragmatic hernia without obstruction or gangrene; K31.89 Other diseases of stomach and duodenum; K64.8 Other hemorrhoids; Z68.42 Body mass index [BMI] 45.0-49.9, adult
CPT/HCPCS: 43239; 45384; 81025; J2001; J2250; 45378

== ENCOUNTER 2017-08-24 05:53 | Inpatient (IN) | payer BC ==
[2017-08-22 10:38] LABS: BASOPHILS % 0.3 % (0.0-1.0); EOSINOPHILS # (AUTO) 0.1 (0.0-0.4); EOSINOPHILS % 1.1 % (0.0-6.0); HEMATOCRIT 42.1 % (34.2-44.1); HEMOGLOBIN 14.2 g/dL (12.0-16.0); LYMPHOCYTES # (AUTO) 2.1 (1.0-3.2); LYMPHOCYTES % 29.1 % (18.0-39.1); MEAN CORPUSCULAR HEMOGLOBIN 28.1 pg (28-32); MEAN CORPUSCULAR HGB CONC 33.7 g/dL (31-35); MEAN CORPUSCULAR VOLUME 83.2 fL (81-99); MONOCYTES # (AUTO) 0.4 (0.2-0.8); MONOCYTES % 5.2 % (4.4-11.3); NEUTROPHILS # (AUTO) 4.6 (2.1-6.9); PLATELET COUNT 144 x10e3/uL (140-360); RED BLOOD COUNT 5.06 x10e6/uL (3.6-5.1); RED CELL DISTRIBUTION WIDTH 13.7 % (11.7-14.4)
[~2017-08-24] VITALS: Ht 147.3 cm; Wt 101.2 kg
[~2017-08-24 05:53] MED LIST changes: -FENTANYL CITRATE/PF 100MCG/2 ML INJ ONE; -LIDOCAINE HCL 2% LOCAL INJ 5 ML SDV VIAL INJ ONE; -MIDAZOLAM HCL 2 MG/2 ML VIAL ONE; -PROPOFOL IV EMULSION 10 MG/ML 50 ML VIAL ONE
[2017-08-24] MEDS ORDERED: BUPIVACAINE HCL 0.5% INJ 30 ML VIAL INJ ONE (08:01)
[2017-08-24] MEDS ORDERED: MINERAL OIL STERILE 10ML VIAL ONE (08:01)
[2017-08-24] MEDS ORDERED: PROMETHAZINE HCL (IM) 25 MG/ML VIAL IV PRN (11:15)
[2017-08-24] MEDS: SODIUM CHLORIDE 0.9% 250ML IRRIG IR SCH ×4 (11:15→23:37)
[2017-08-24] MEDS ORDERED: NALOXONE HCL INJ 0.4 MG/ML AMP IV PRN (11:15)
[2017-08-24] MEDS ORDERED: ACETAMINOPHEN 1000 MG/100 ML IV PRN (11:15)
[2017-08-24] MEDS ORDERED: HYDROMORPHONE 0.2MG/ML-SOD CHL 30ML PCA SYRINGE IV PRN (11:15)
[2017-08-24] MEDS ORDERED: CEFOXITIN 1GM/ DEXTROSE 50ML 50 ML IV SCH (12:00)
--- NOTE | 2017-08-24 12:08 | Operative Report ---
DATE OF PROCEDURE: August 24, 2017 PREOPERATIVE DIAGNOSIS: Recurrent diverticulitis. POSTOPERATIVE DIAGNOSIS: Recurrent diverticulitis. OPERATION PERFORMED: Laparoscopically assisted left colon resection with mobilization of the splenic flexure and transanal staple anastomosis. [employer] SERVICES MANAGER: Dr. Darin Uriostegui and C[place] Flores. ANESTHESIA: General. COMPLICATIONS: None. ESTIMATED BLOOD LOSS: 50 mL. DESCRIPTION OF PROCEDURE: With the patient lying in bed in the supine position under good general endotracheal anesthesia, the abdomen and perineum were prepped with Betadine solution and draped in the usual manner. Veress needle was introduced into the left upper abdomen and pneumoperitoneum was established without any difficulty. A 5 mm trocar was placed in the left upper quadrant and a 5 mm video laparoscope was placed into the intra-abdominal cavity. Video laparoscopy at this point revealed numerous adhesions to the right side of the abdomen from the patient's previous surgery however the subumbilical space was free. An 11 mm trocar was then placed through the umbilicus and a 10 mm video laparoscope was placed into the intra-abdominal cavity. Another 5 mm trocar was placed in the left lower quadrant and another one in the suprapubic region. Laparoscopy at this point revealed bilateral small benign-appearing ovarian cysts. The sigmoid colon was stuck to the lateral gutter and to the left adnexa from the multiple bouts of diverticulitis in the past. The patient had a very high-riding splenic flexure and again the previously described adhesions to the right side of the abdomen. At this point, using the harmonic scalpel, the left colon was mobilized off of the lateral gutter and mobilized off of the left adnexa. The white line was then opened and the left ureter was visualized and preserved revealing the entire dissection and the left colon was slowly and carefully mobilized medially with the harmonic scalpel. The splenic flexure of the colon was then laparoscopically brought down so that the colon would reach comfortably down to the pelvis. Once this was done we went ahead and then made a small left lower quadrant incision, carried down to the external oblique aponeurosis. External oblique was opened along the length of its fibers and a muscle-splitting incision was carried down to the peritoneum. The peritoneum was opened and the abdomen was entered. Upon entering the abdominal cavity the hand-assist device was then placed without any difficulty and the left colon was then brought up into the incision. The sigmoid colon was then dissected using the harmonic scalpel all the way to the upper rectum and the colon was then divided with an application of the contour stapler at the level of the junction of the lower sigmoid colon and the upper rectum. The mesentery of the colon was then divided using the harmonic scalpel and the colon was slowly and carefully pulled up and was then again divided with the WILLIAMS stapler at the level of the descending colon. Because of the previous mobilization of the splenic flexure, the colon reached down into the pelvis without any difficulty. The proximal staple line was then removed and a 29 EEA stapler was then placed and fixed in position with a purse-string suture of 2-0 Prolene. At this point we then went from below and dilated the anus and rectum with the EEA dilators. A 29 EEA dilator was then placed transanal and brought out through the anterior portion of the staple line in the rectum. The stapler and the anvil were then joined and the stapler was slowly closed and fired without any difficulty. Two perfect doughnuts were obtained. Gloves and instruments were then changed. The anastomosis was then reinforced with interrupted sutures of 3-0 silk. The abdomen was irrigated with saline solution and perfect hemostasis was ascertained and the abdomen was then closed in layers. Peritoneum was closed with a running suture #1 Vicryl. The muscle was reapproximated with interrupted #1 Vicryl. The external oblique aponeurosis was closed with a running suture #1 Vicryl. The subcutaneous tissue was approximated with 3-0 chromic and the skin was closed with clips. Dressings were applied. The sponge, lap and needle count was correct. The patient tolerated the procedure well and returned to the recovery room in stable condition. Job#: [id number] [id number]
[2017-08-24] MEDS: PANTOPRAZOLE 40 MG 10ML VIAL IV SCH (14:35)
[2017-08-24] MEDS: CEFOXITIN SOD 1 GM VIAL IV SCH ×2 (14:35→20:35)
[2017-08-24 14:54] VITALS: BP 107/59
[2017-08-24] MEDS ORDERED: GLYCOPYRROLATE INJ 1MG/ 5 ML SYR ONE (16:07)
[2017-08-24] MEDS ORDERED: SEVOFLURANE INHAL SOLN 250 ML PEN BTL ONE (16:07)
[2017-08-24] MEDS ORDERED: ONDANSETRON HCL INJ 2 MG/ML VIAL ONE (16:07)
[2017-08-24] MEDS ORDERED: LIDOCAINE HCL 2% LOCAL INJ 5 ML SDV VIAL INJ ONE (16:07)
[2017-08-24] MEDS ORDERED: ROCURONIUM BROMIDE 10 MG/ML 5ML VIAL ONE (16:07)
[2017-08-24] MEDS ORDERED: DEXAMETHASONE SOD PHOS INJ 4 MG/ML VIAL ONE (16:07)
[2017-08-24] MEDS ORDERED: NEOSTIGMINE 5 MG/5ML SYR ONE (16:07)
[2017-08-24] MEDS ORDERED: PROPOFOL IV EMULSION 10 MG/ML 20 ML VIAL ONE (16:07)
[2017-08-24] MEDS ORDERED: MIDAZOLAM HCL 2 MG/2 ML VIAL ONE (16:51)
[2017-08-24] MEDS ORDERED: FENTANYL CITRATE/PF 100MCG/2 ML INJ ONE (16:51)
[2017-08-24 16:57] VITALS: BP 134/76
[2017-08-24] MEDS: DEXTROSE 5%/LACTATED RINGERS 1,000 ML IV SCH ×2 (17:27→21:44)
[2017-08-24] MEDS: PROMETHAZINE 12.5MG/ NACL 0.9% 50 ML IV PRN (18:37)
[2017-08-24 20:00] VITALS: BP 129/82
[2017-08-24 20:35] VITALS: BP 129/82
[2017-08-25] VITALS (7 sets, daily range): BP systolic 98–141; BP diastolic 50–80
[2017-08-25] MEDS: SODIUM CHLORIDE 0.9% 250ML IRRIG IR SCH ×5 (03:16→22:00)
[2017-08-25] MEDS: DEXTROSE 5%/LACTATED RINGERS 1,000 ML IV SCH ×3 (03:17→22:00)
[2017-08-25 06:27] LABS: BASOPHILS % 0.1 % (0.0-1.0); HEMATOCRIT 38.8 % (34.2-44.1); HEMOGLOBIN 13.1 g/dL (12.0-16.0); LYMPHOCYTES # (AUTO) 1.3 (1.0-3.2); LYMPHOCYTES % 7.8 % (18.0-39.1); MEAN CORPUSCULAR HEMOGLOBIN 28.3 pg (28-32); MEAN CORPUSCULAR HGB CONC 33.8 g/dL (31-35); MEAN CORPUSCULAR VOLUME 83.8 fL (81-99); MONOCYTES # (AUTO) 0.9 (0.2-0.8); MONOCYTES % 5.5 % (4.4-11.3); NEUTROPHILS # (AUTO) 13.9 (2.1-6.9); NEUTROPHILS % 86.3 % (38.7-80.0); PLATELET COUNT 232 x10e3/uL (140-360); RED BLOOD COUNT 4.63 x10e6/uL (3.6-5.1); RED CELL DISTRIBUTION WIDTH 13.5 % (11.7-14.4)
[2017-08-25] MEDS: KETOROLAC TROMETHAMINE 30 MG/ML VIAL IV PRN (06:28)
[2017-08-25 06:51] LABS: BLOOD UREA NITROGEN 6 mg/dL (7-26); BUN/CREATININE RATIO 9 (6-25); CALCIUM 9.3 mg/dL (8.4-10.2); CARBON DIOXIDE 24 mmol/L (22-29); CHLORIDE 104 mmol/L (98-107); CREATININE, SERUM 0.69 mg/dL (0.57-1.11); EST GLOMERULAR FILTRATION RATE > 60 ML/MIN (60-); GLUCOSE 130 mg/dL (74-118); SODIUM 138 mmol/L (136-145)
[2017-08-25] MEDS ORDERED: HYDROMORPHONE 0.2MG/ML-SOD CHL 30ML PCA SYRINGE IV PRN (14:30)
[2017-08-25] MEDS: PANTOPRAZOLE 40 MG 10ML VIAL IV SCH (16:02)
[2017-08-25] MEDS ORDERED: CEFOXITIN SOD 1 GM VIAL ONE (16:09)
[2017-08-25] MEDS: BISACODYL 10 MG SUPP PR SCH (22:00)
[2017-08-26] VITALS (8 sets, daily range): BP systolic 104–124; BP diastolic 54–73
[2017-08-26] MEDS: SODIUM CHLORIDE 0.9% 250ML IRRIG IR SCH ×5 (00:52→15:17)
[2017-08-26] MEDS: DEXTROSE 5%/LACTATED RINGERS 1,000 ML IV SCH ×3 (03:12→23:12)
[2017-08-26 06:25] LABS: BASOPHILS % 0.3 % (0.0-1.0); EOSINOPHILS % 0.4 % (0.0-6.0); HEMATOCRIT 38.2 % (34.2-44.1); HEMOGLOBIN 12.5 g/dL (12.0-16.0); LYMPHOCYTES # (AUTO) 1.9 (1.0-3.2); LYMPHOCYTES % 17.9 % (18.0-39.1); MEAN CORPUSCULAR HEMOGLOBIN 28.3 pg (28-32); MEAN CORPUSCULAR HGB CONC 32.7 g/dL (31-35); MEAN CORPUSCULAR VOLUME 86.4 fL (81-99); MONOCYTES # (AUTO) 0.7 (0.2-0.8); MONOCYTES % 6.6 % (4.4-11.3); NEUTROPHILS # (AUTO) 7.7 (2.1-6.9); NEUTROPHILS % 74.5 % (38.7-80.0); PLATELET COUNT 201 x10e3/uL (140-360); RED BLOOD COUNT 4.42 x10e6/uL (3.6-5.1); RED CELL DISTRIBUTION WIDTH 13.5 % (11.7-14.4)
[2017-08-26 06:49] LABS: ANION GAP 10.8 mmol/L (8-16); BLOOD UREA NITROGEN 6 mg/dL (7-26); BUN/CREATININE RATIO 8 (6-25); CALCIUM 9.3 mg/dL (8.4-10.2); CARBON DIOXIDE 28 mmol/L (22-29); CHLORIDE 100 mmol/L (98-107); CREATININE, SERUM 0.78 mg/dL (0.57-1.11); EST GLOMERULAR FILTRATION RATE > 60 ML/MIN (60-); GLUCOSE 117 mg/dL (74-118); POTASSIUM 3.8 mmol/L (3.5-5.1); SODIUM 135 mmol/L (136-145)
[2017-08-26] MEDS: BISACODYL 10 MG SUPP PR SCH ×2 (09:27→21:00)
[2017-08-26] MEDS ORDERED: BISACODYL 10 MG SUPP PR SCH (09:30)
[2017-08-26] MEDS: PANTOPRAZOLE 40 MG 10ML VIAL IV SCH (13:47)
[2017-08-26] MEDS: KETOROLAC TROMETHAMINE 30 MG/ML VIAL IV PRN (15:58)
[2017-08-26] MEDS ORDERED: HYDROCODONE/APAP 7.5MG-325MG 1 EA TAB PO PRN (17:45)
[2017-08-26] MEDS: PROMETHAZINE 12.5MG/ NACL 0.9% 50 ML IV PRN (18:12)
[2017-08-27] MEDS: DEXTROSE 5%/LACTATED RINGERS 1,000 ML IV SCH ×2 (03:52→20:38)
[2017-08-27 03:57] VITALS: BP 122/63
[2017-08-27] MEDS: KETOROLAC TROMETHAMINE 30 MG/ML VIAL IV PRN (03:59)
[2017-08-27 08:00] VITALS: BP 139/66
[2017-08-27] MEDS: BISACODYL 10 MG SUPP PR SCH (08:00)
[2017-08-27 08:31] LABS: BASOPHILS % 0.3 % (0.0-1.0); EOSINOPHILS # (AUTO) 0.1 (0.0-0.4); EOSINOPHILS % 1.8 % (0.0-6.0); HEMOGLOBIN 12.1 g/dL (12.0-16.0); LYMPHOCYTES # (AUTO) 2.3 (1.0-3.2); LYMPHOCYTES % 28.9 % (18.0-39.1); MEAN CORPUSCULAR HEMOGLOBIN 27.9 pg (28-32); MEAN CORPUSCULAR HGB CONC 33.6 g/dL (31-35); MONOCYTES # (AUTO) 0.4 (0.2-0.8); MONOCYTES % 5.6 % (4.4-11.3); NEUTROPHILS % 63.1 % (38.7-80.0); PLATELET COUNT 206 x10e3/uL (140-360); RED BLOOD COUNT 4.34 x10e6/uL (3.6-5.1); RED CELL DISTRIBUTION WIDTH 13.2 % (11.7-14.4)
[2017-08-27 08:40] LABS: MEAN CORPUSCULAR VOLUME 82.9 fL (81-99)
[2017-08-27 08:54] LABS: ANION GAP 12.7 mmol/L (8-16); BLOOD UREA NITROGEN 5 mg/dL (7-26); BUN/CREATININE RATIO 7 (6-25); CALCIUM 9.3 mg/dL (8.4-10.2); CARBON DIOXIDE 25 mmol/L (22-29); CHLORIDE 104 mmol/L (98-107); CREATININE, SERUM 0.69 mg/dL (0.57-1.11); EST GLOMERULAR FILTRATION RATE > 60 ML/MIN (60-); GLUCOSE 97 mg/dL (74-118); POTASSIUM 3.7 mmol/L (3.5-5.1); SODIUM 138 mmol/L (136-145)
[2017-08-27 12:00] VITALS: BP 148/92
[2017-08-27] MEDS: PANTOPRAZOLE 40 MG 10ML VIAL IV SCH (14:00)
[2017-08-27 15:53] VITALS: BP 114/58
[2017-08-27] MEDS ORDERED: KETOROLAC TROMETHAMINE 30 MG/ML VIAL IM PRN (16:00)
[2017-08-27 20:00] VITALS: BP 124/59
[2017-08-27] MEDS: HYDROMORPHONE 1MG/1ML INJ IV PRN (20:38)
[2017-08-27 21:42] VITALS: BP 124/59
[2017-08-28] VITALS: BP 118/69
[2017-08-28] MEDS: HYDROMORPHONE 1MG/1ML INJ IV PRN (03:39)
[2017-08-28 04:00] VITALS: BP 136/63
[2017-08-28] MEDS: DEXTROSE 5%/LACTATED RINGERS 1,000 ML IV SCH (06:17)
[2017-08-28 08:31] VITALS: BP 103/54
[2017-08-28 09:51] VITALS: BP 103/54
== END 2017-08-28 12:58 | disposition home or self-care (01) | DRG 331 ==
LOC: OR 05:53 → PACU V 11:14 → MED/SURG 14:17
PROVIDERS: ADMIT Surgery; ATTEND Surgery
PROC: 0DTG0ZZ Resection of Left Large Intestine, Open Approach (ICD-10-PCS; principal; 2017-08-24 07:30)
DX: K57.32 Diverticulitis of large intestine without perforation or abscess without bleeding (principal)
CPT/HCPCS: 36415; 80048; 81025; 85025; 86850; 86900; 88307; 96361; C1766; J0694; J1100; J1170; J1885; J2001; J2250; J2405; J2550; J7120

== ENCOUNTER 2019-04-25 18:08 | Emergency (ER) | payer SELFPAY ==
[~2019-04-25] VITALS: Ht 147.3 cm; Wt 101.2 kg
[2019-04-25] MEDS ORDERED: HYDROCODONE/APAP 7.5MG-325MG 1 EA TAB PO PRN (18:30)
[2019-04-25] MEDS ORDERED: CYCLOBENZAPRINE HCL 10 MG TAB PO ONE (18:30)
[2019-04-25] MEDS ORDERED: DEXAMETHASONE SOD PHOS 10 MG/1 ML VIAL IM ONE (18:30)
[2019-04-25] MEDS ORDERED: KETOROLAC TROMETHAMINE 60 MG/2 ML VIAL IM ONE (18:30)
--- NOTE | 2019-04-25 19:58 | Diagnostic Imaging Report ---
History: Neck pain, hand tingling. Comparison studies: CT neck 02/08/2019 Technique: Axial images were obtained through the cervical region. Coronal and sagittal images reconstructed from the axial data. Intravenous contrast: None Dose modulation, iterative reconstruction, and/or weight based adjustment of the mA/kV was utilized to reduce the radiation dose to as low as reasonably achievable. Findings: Atlantoaxial articulation: Intact Alignment: Reversal of normal lordosis, could be positional or related to muscle spasm. No scoliosis. Cervicomedullary junction: No abnormalities. Patent foramen magnum. Soft tissues: No gross paraspinal abnormalities. Enlarged right thyroid lobe with mild left tracheal deviation. Vertebrae: No fractures, neoplasm or infection. Degenerative changes: C2-C3: Patent spinal canal and foramina . C3-4: Patent spinal canal and foramina . C4-5: Patent spinal canal and foramina . C5-6: Patent spinal canal and foramina . C6-7: Patent spinal canal and foramina . C7-T1: Patent spinal canal and foramina . IMPRESSION: 1. No acute cervical abnormality. 2. Grossly patent canal and foraminal. 3. Enlarged right thyroid, nonemergent ultrasound recommended for further evaluation. Signed by: DR Flo Blackburn M.D. on 04/25/2019 7:55 PM
[2019-04-25 20:45] VITALS: BP 137/93
== END 2019-04-25 20:56 | disposition home or self-care (01) ==
LOC: ER 18:08
DX: S16.1XXA Strain of muscle, fascia and tendon at neck level, initial encounter (principal); R51 Headache; R11.0 Nausea; Z98.0 Intestinal bypass and anastomosis status
CPT/HCPCS: 72125; 99283; J1100; J1885